=== PATIENT | male | born 1970 | race Caucasian/White ===

== ENCOUNTER 2021-03-27 04:15 | Inpatient (IN) | payer OTHER ==
[2021-03-23 16:33] VITALS: BMI 32.5
[2021-03-27] MEDS ORDERED: GENTAMICIN SO4 80 MG/2 ML VIAL ONE (07:19)
[2021-03-27] MEDS ORDERED: BUPIVACAINE HCL/PF 0.25% (2.5MG/ML) 10 ML VIAL ONE (07:19)
[2021-03-27] MEDS ORDERED: BUPIVACAINE LIPOSOME/PF (EXPAREL) 266 MG/20 ML VIAL ONE (07:19)
[2021-03-27] MEDS ORDERED: THROMBIN (BOVINE) 5,000 UNIT VIAL TP ONE ×2 (07:20→09:28)
[2021-03-27] MEDS ORDERED: ROCURONIUM BROMIDE 50 MG/5 ML SYRINGE ONE ×2 (08:07→09:41)
[2021-03-27] MEDS ORDERED: fentaNYL CITRATE 250 MCG/5 ML VIAL ONE ×2 (08:07→10:30)
[2021-03-27] MEDS ORDERED: MIDAZOLAM HCL 2 MG/2 ML SINGLE DOSE VIAL ONE (08:07)
[2021-03-27] MEDS ORDERED: PROPOFOL 20 ML ONE ×3 (08:07→12:46)
[2021-03-27] MEDS ORDERED: GLYCOPYRROLATE 0.2 MG/1 ML VIAL ONE ×2 (08:09→12:07)
[2021-03-27] MEDS ORDERED: SODIUM CHLORIDE 0.9% P/F 10 ML VIAL IJ ONE ×2 (08:10→11:32)
[2021-03-27] MEDS ORDERED: ceFAZolin SODIUM 1 GM VIAL ONE ×3 (08:10→15:24)
[2021-03-27] MEDS ORDERED: VANCOMYCIN 1,000 MG VIAL (RESTRICTED TO ID ONLY) ONE (08:10)
[2021-03-27] MEDS ORDERED: LIDOCAINE HCL/PF 2% SDV 5ML VIAL ONE ×2 (08:13→12:39)
[2021-03-27] MEDS ORDERED: MORPHINE 5 MG/10 ML AMP - FOR COMPOUNDING USE ONLY ONE (08:31)
[2021-03-27] MEDS ORDERED: VANCOMYCIN 1,000 MG VIAL (RESTRICTED TO ID ONLY) IVPB ONE (08:50)
[2021-03-27] MEDS ORDERED: DEXAMETHASONE SOD PHOSPHATE 4 MG/1 ML VIAL ONE (08:51)
[2021-03-27] MEDS ORDERED: ceFAZolin SODIUM 1 GM VIAL IVPB ONE (09:05)
[2021-03-27] MEDS ORDERED: TRANEXAMIC ACID 1000 MG/10 ML VIAL ONE ×2 (09:06→12:12)
[2021-03-27] MEDS ORDERED: GENTAMICIN SO4 80 MG/2 ML VIAL IVPB ONE (09:28)
[2021-03-27] MEDS ORDERED: ACETAMINOPHEN INJECTION 100 ML IVPB ONE (11:36)
[2021-03-27] MEDS ORDERED: ONDANSETRON 4 MG/2 ML VIAL ONE (12:04)
[2021-03-27] MEDS ORDERED: NEOSTIGMINE METHYLSULFATE 0.5 MG/1 ML - 10 ML MDV ONE (12:07)
[2021-03-27] MEDS ORDERED: BUPIVACAINE LIPOSOME/PF (EXPAREL) 266 MG/20 ML VIAL NR ONE (12:27)
[2021-03-27] MEDS ORDERED: BUPIVACAINE HCL/PF 0.25% (2.5MG/ML) 10 ML VIAL IJ ONE (12:27)
[2021-03-27] MEDS ORDERED: METOPROLOL TARTRATE 5 MG/5 ML VIAL ONE (12:40)
[2021-03-27] MEDS ORDERED: ONDANSETRON 4 MG/2 ML VIAL IVPUSH PRN ×2 (13:01→13:12)
[2021-03-27] MEDS ORDERED: PROMETHAZINE HCL 25 MG/1 ML VIAL IVPUSH PRN (13:01)
[2021-03-27] MEDS ORDERED: morphine SULFATE/PF 1 MG/2 ML (2cc Syringe - QUVA) EP ONE (13:03)
[2021-03-27] MEDS ORDERED: oxyCODONE HCL 20 MG SUSTAINED ACTING TABLET PO PRN (13:11)
[2021-03-27] MEDS ORDERED: diazePAM CARPU-JECT 10 MG/2 ML DISP.SYRIN IVPUSH PRN (13:12)
[2021-03-27] MEDS ORDERED: ACETAMINOPHEN 1000 MG/100 ML VIAL IVPB PRN (13:12)
[2021-03-27] MEDS ORDERED: oxyCODONE HCL 5 MG TABLET PO PRN (13:12)
[2021-03-27] MEDS ORDERED: LACTATED RINGERS SOLUTION 1,000 ML IV SCH ×2 (13:15)
[2021-03-27] MEDS: CEFAZOLIN 2 GM in DEXTROSE 5%-WATER - 100 ML IVPB SCH ×2 (15:45→22:33)
[2021-03-27] MEDS: oxyCODONE HCL 5 MG TABLET PO PRN (18:55)
[2021-03-27] MEDS: HYDROmorphone HCl 2 MG/ML VIAL SQ PRN (21:45)
[2021-03-27] MEDS: ZOLPIDEM TARTRATE 5 MG TABLET PO PRN (22:00)
[2021-03-28] MEDS: CEFAZOLIN 2 GM in DEXTROSE 5%-WATER - 100 ML IVPB SCH (02:26)
[2021-03-28] MEDS: HYDROmorphone HCl 2 MG/ML VIAL SQ PRN (06:03)
[2021-03-28 07:30] LABS: HEMATOCRIT 27.8 % (35.4-49); HEMOGLOBIN 9.7 GM/dL (11.7-16.9); MCH 30.9 pg (25.7-33.7); MCHC 34.8 g/dl (32.0-35.9); MEAN CELL VOLUME 88.9 fl (80-96); MEAN PLT VOLUME 10.2 fl (7.5-11.1); PLATELET COUNT 125 10^3/uL (134-434); RBC 3.12 M/mm3 (4.00-5.60); RDW 12.7 % (11.9-15.9); WHITE BLOOD COUNT 9.6 K/mm3 (4.0-10.0)
[2021-03-28 07:40] LABS: BLOOD UREA NITROGEN 14.9 mg/dL (7-18); CALCIUM 7.9 mg/dL (8.5-10.1)
[2021-03-28 07:43] LABS: CREATININE 0.8 mg/dL (0.55-1.3)
[2021-03-28] MEDS: oxyCODONE HCL 5 MG TABLET PO PRN (08:29)
[2021-03-28] MEDS ORDERED: DEXAMETHASONE SOD PHOSPHATE 4 MG/1 ML VIAL IVPUSH PRN (11:27)
[2021-03-28] MEDS ORDERED: ONDANSETRON 4 MG/2 ML VIAL IVPUSH PRN (11:27)
[2021-03-28] MEDS ORDERED: PROMETHAZINE HCL 25 MG/1 ML VIAL IVPB PRN (11:27)
[2021-03-28] MEDS: POLYETHYLENE GLYCOL (HEALTHYLAX) 3350 17 GM PACKET PO SCH (12:26)
[2021-03-28] MEDS ORDERED: PCA PUMP NR ONE (12:52)
[2021-03-28] MEDS: ZOLPIDEM TARTRATE 5 MG TABLET PO PRN (21:26)
[2021-03-29] MEDS: oxyCODONE HCL 5 MG TABLET PO PRN ×2 (00:40→15:12)
[2021-03-29 06:44] LABS: BASO % 0.1 % (0-2.0); HEMATOCRIT 29.8 % (35.4-49); HEMOGLOBIN 10.2 GM/dL (11.7-16.9); LYMPH % 14.1 % (8-40); MCH 30.6 pg (25.7-33.7); MCHC 34.3 g/dl (32.0-35.9); MEAN CELL VOLUME 89.2 fl (80-96); MEAN PLT VOLUME 10.4 fl (7.5-11.1); MONO % 10.5 % (3.8-10.2); NEUT % 75.3 % (42.8-82.8); PLATELET COUNT 121 10^3/uL (134-434); RBC 3.34 M/mm3 (4.00-5.60); RDW 12.6 % (11.9-15.9)
[2021-03-29 07:06] LABS: CALCIUM 8.1 mg/dL (8.5-10.1)
[2021-03-29 07:07] LABS: ALBUMIN 2.7 g/dl (3.4-5.0)
[2021-03-29 07:08] LABS: MAGNESIUM 2.2 mg/dL (1.8-2.4)
[2021-03-29 07:10] LABS: CREATININE 0.8 mg/dL (0.55-1.3); PHOSPHOROUS 2.4 mg/dL (2.5-4.9)
[2021-03-29 07:12] LABS: BILIRUBIN,TOTAL 0.7 mg/dL (0.2-1); TOT PROT 5.8 g/dl (6.4-8.2)
[2021-03-29] MEDS: HYDROmorphone *PCA* 10MG/50ML DISP.SYRIN PCA PRN (08:20)
[2021-03-29] MEDS: POLYETHYLENE GLYCOL (HEALTHYLAX) 3350 17 GM PACKET PO SCH (10:50)
[2021-03-29] MEDS ORDERED: BISACODYL 10 MG SUPP.RECT PR ONE (11:11)
[2021-03-29] MEDS ORDERED: [UNRECOGNIZED DRUG - OTHER] PO PRN (15:14)
[2021-03-29] MEDS ORDERED: OXYCODONE HCL PO PRN (15:14)
[2021-03-29] MEDS: LIDOCAINE 5% TOPICAL PATCH TP SCH (15:30)
[2021-03-29] MEDS: GABAPENTIN 300 MG CAPSULE PO SCH ×2 (15:38→21:48)
[2021-03-29] MEDS: SENNOSIDES 8.6MG TABLET (FP) PO SCH (21:48)
[2021-03-29] MEDS: ACETAMINOPHEN 500 MG TABLET (FP) PO SCH (21:48)
[2021-03-29] MEDS: ZOLPIDEM TARTRATE 5 MG TABLET PO PRN (21:49)
[2021-03-29] MEDS: LIDOCAINE PATCH REMOVAL MC SCH (21:53)
[2021-03-30] MEDS: GABAPENTIN 300 MG CAPSULE PO SCH ×3 (06:24→22:17)
[2021-03-30] MEDS: ACETAMINOPHEN 500 MG TABLET (FP) PO SCH ×3 (06:25→22:16)
[2021-03-30 07:36] LABS: HEMATOCRIT 30.8 % (35.4-49); HEMOGLOBIN 10.8 GM/dL (11.7-16.9); MCH 31.2 pg (25.7-33.7); MCHC 35.1 g/dl (32.0-35.9); MEAN CELL VOLUME 88.9 fl (80-96); MEAN PLT VOLUME 10.2 fl (7.5-11.1); PLATELET COUNT 138 10^3/uL (134-434); RBC 3.46 M/mm3 (4.00-5.60); RDW 12.5 % (11.9-15.9); WHITE BLOOD COUNT 7.5 K/mm3 (4.0-10.0)
[2021-03-30 08:09] LABS: ALBUMIN 2.9 g/dl (3.4-5.0); BLOOD UREA NITROGEN 12.6 mg/dL (7-18); CALCIUM 8.3 mg/dL (8.5-10.1)
[2021-03-30 08:11] LABS: BILIRUBIN,TOTAL 0.8 mg/dL (0.2-1); CREATININE 0.8 mg/dL (0.55-1.3); TOT PROT 6.3 g/dl (6.4-8.2)
[2021-03-30 08:44] LABS: PHOSPHOROUS 2.3 mg/dL (2.5-4.9)
[2021-03-30] MEDS: LIDOCAINE 5% TOPICAL PATCH TP SCH (11:01)
[2021-03-30] MEDS: POLYETHYLENE GLYCOL (HEALTHYLAX) 3350 17 GM PACKET PO SCH (11:01)
[2021-03-30] MEDS: oxyCODONE HCL 5 MG TABLET PO PRN ×2 (14:17→20:57)
[2021-03-30] MEDS: HYDROmorphone *PCA* 10MG/50ML DISP.SYRIN PCA PRN (14:20)
[2021-03-30] MEDS: ZOLPIDEM TARTRATE 5 MG TABLET PO PRN (21:05)
[2021-03-30] MEDS: SENNOSIDES 8.6MG TABLET (FP) PO SCH (22:17)
[2021-03-30] MEDS: LIDOCAINE PATCH REMOVAL MC SCH (23:00)
[2021-03-31] MEDS: GABAPENTIN 300 MG CAPSULE PO SCH ×3 (06:40→21:19)
[2021-03-31] MEDS: ACETAMINOPHEN 500 MG TABLET (FP) PO SCH ×3 (06:40→21:19)
[2021-03-31 07:23] LABS: HEMOGLOBIN 10.7 GM/dL (11.7-16.9); MCHC 35.7 g/dl (32.0-35.9); MEAN CELL VOLUME 86.8 fl (80-96); MEAN PLT VOLUME 9.7 fl (7.5-11.1); PLATELET COUNT 173 10^3/uL (134-434); RBC 3.45 M/mm3 (4.00-5.60); RDW 12.9 % (11.9-15.9); WHITE BLOOD COUNT 6.3 K/mm3 (4.0-10.0)
[2021-03-31 07:47] LABS: CALCIUM 8.5 mg/dL (8.5-10.1)
[2021-03-31 07:48] LABS: BLOOD UREA NITROGEN 16.1 mg/dL (7-18)
[2021-03-31] MEDS: POLYETHYLENE GLYCOL (HEALTHYLAX) 3350 17 GM PACKET PO SCH (09:51)
[2021-03-31] MEDS: LIDOCAINE 5% TOPICAL PATCH TP SCH (09:52)
[2021-03-31] MEDS ORDERED: oxyCODONE HCL 5 MG TABLET PO PRN (10:34)
[2021-03-31] MEDS: oxyCODONE HCL 5 MG TABLET PO PRN ×2 (18:04→21:19)
[2021-03-31] MEDS: LIDOCAINE PATCH REMOVAL MC SCH (21:13)
[2021-03-31] MEDS: SENNOSIDES 8.6MG TABLET (FP) PO SCH (21:19)
[2021-04-01] MEDS: oxyCODONE HCL 5 MG TABLET PO PRN ×5 (03:34→21:08)
[2021-04-01] MEDS: GABAPENTIN 300 MG CAPSULE PO SCH ×3 (06:32→21:07)
[2021-04-01] MEDS: ACETAMINOPHEN 500 MG TABLET (FP) PO SCH ×4 (06:32→21:08)
[2021-04-01 08:12] LABS: HEMATOCRIT 32.4 % (35.4-49); HEMOGLOBIN 11.4 GM/dL (11.7-16.9); MCH 31.2 pg (25.7-33.7); MEAN PLT VOLUME 9.8 fl (7.5-11.1); PLATELET COUNT 230 10^3/uL (134-434); RBC 3.64 M/mm3 (4.00-5.60); RDW 12.7 % (11.9-15.9); WHITE BLOOD COUNT 6.3 K/mm3 (4.0-10.0)
[2021-04-01 08:37] LABS: CALCIUM 8.5 mg/dL (8.5-10.1)
[2021-04-01 08:38] LABS: BLOOD UREA NITROGEN 12.5 mg/dL (7-18)
[2021-04-01 08:41] LABS: CREATININE 0.9 mg/dL (0.55-1.3)
[2021-04-01 08:42] LABS: BILIRUBIN,TOTAL 0.8 mg/dL (0.2-1)
[2021-04-01 08:43] LABS: TOT PROT 6.7 g/dl (6.4-8.2)
[2021-04-01] MEDS: POLYETHYLENE GLYCOL (HEALTHYLAX) 3350 17 GM PACKET PO SCH (09:27)
[2021-04-01] MEDS: LIDOCAINE 5% TOPICAL PATCH TP SCH (09:28)
[2021-04-01] MEDS: LIDOCAINE PATCH REMOVAL MC SCH (21:09)
[2021-04-01] MEDS: SENNOSIDES 8.6MG TABLET (FP) PO SCH (21:09)
[2021-04-01] MEDS ORDERED: ZOLPIDEM TARTRATE 5 MG TABLET PO ONE (21:17)
[2021-04-02] MEDS: oxyCODONE HCL 5 MG TABLET PO PRN ×8 (02:49→23:23)
[2021-04-02] MEDS: ACETAMINOPHEN 500 MG TABLET (FP) PO SCH ×2 (06:19→21:31)
[2021-04-02] MEDS: GABAPENTIN 300 MG CAPSULE PO SCH ×3 (06:19→21:31)
[2021-04-02] MEDS: LIDOCAINE 5% TOPICAL PATCH TP SCH (09:34)
[2021-04-02] MEDS: POLYETHYLENE GLYCOL (HEALTHYLAX) 3350 17 GM PACKET PO SCH (09:34)
[2021-04-02] MEDS ORDERED: oxyCODONE HCL 5 MG TABLET ONE (10:34)
[2021-04-02] MEDS ORDERED: MELATONIN 5 MG TABLETS PO ONE (19:53)
[2021-04-02] MEDS: LIDOCAINE PATCH REMOVAL MC SCH (21:31)
[2021-04-02] MEDS: SENNOSIDES 8.6MG TABLET (FP) PO SCH (21:31)
[2021-04-03] MEDS: oxyCODONE HCL 5 MG TABLET PO PRN ×3 (04:14→13:48)
[2021-04-03] MEDS: ACETAMINOPHEN 500 MG TABLET (FP) PO SCH ×2 (05:18→13:43)
[2021-04-03] MEDS: GABAPENTIN 300 MG CAPSULE PO SCH ×2 (06:03→13:49)
[2021-04-03 08:19] VITALS: BP 114/77; PULSE 103; TEMP 98.1
[2021-04-03] MEDS: POLYETHYLENE GLYCOL (HEALTHYLAX) 3350 17 GM PACKET PO SCH (09:04)
[2021-04-03] MEDS: LIDOCAINE 5% TOPICAL PATCH TP SCH (09:04)
== END 2021-04-03 14:23 | DRG 304 ==
LOC: J2C 04:15 → J4W 17:33
PROVIDERS: ADMIT Orthopaedic Surgery Orthopaedic Surgery of the Spine
PROC: 0SG10AJ Fusion of 2 or more Lumbar Vertebral Joints with Interbody Fusion Device, Posterior Approach, Anterior Column, Open Approach (ICD-10-PCS; 2021-03-27)
PROC: 0SG1071 Fusion of 2 or more Lumbar Vertebral Joints with Autologous Tissue Substitute, Posterior Approach, Posterior Column, Open Approach (ICD-10-PCS; 2021-03-27)
PROC: 0SB20ZZ Excision of Lumbar Vertebral Disc, Open Approach (ICD-10-PCS; 2021-03-27)
PROC: 01NB0ZZ Release Lumbar Nerve, Open Approach (ICD-10-PCS; 2021-03-27)
PROC: 0SG30AJ Fusion of Lumbosacral Joint with Interbody Fusion Device, Posterior Approach, Anterior Column, Open Approach (ICD-10-PCS; 2021-03-27)
PROC: 0SG3071 Fusion of Lumbosacral Joint with Autologous Tissue Substitute, Posterior Approach, Posterior Column, Open Approach (ICD-10-PCS; 2021-03-27)
PROC: 01NR0ZZ Release Sacral Nerve, Open Approach (ICD-10-PCS; 2021-03-27)
PROC: 0SB40ZZ Excision of Lumbosacral Disc, Open Approach (ICD-10-PCS; 2021-03-27)
PROC: 07DR0ZZ Extraction of Iliac Bone Marrow, Open Approach (ICD-10-PCS; 2021-03-27)
PROC: 0QP004Z Removal of Internal Fixation Device from Lumbar Vertebra, Open Approach (ICD-10-PCS; principal; 2021-03-27 08:00)
DX: M51.16 Intervertebral disc disorders with radiculopathy, lumbar region (principal); M48.062 Spinal stenosis, lumbar region with neurogenic claudication; M51.17 Intervertebral disc disorders with radiculopathy, lumbosacral region; M48.07 Spinal stenosis, lumbosacral region; D62 Acute posthemorrhagic anemia; D69.6 Thrombocytopenia, unspecified; G47.00 Insomnia, unspecified; E78.5 Hyperlipidemia, unspecified
CPT/HCPCS: 36415; 72131-TC; 76000-TC-FY; 80048; 80053; 83735; 84100; 85025; 85027; 86850; 86900; 86901; 86922; 94010; 94760; 97116-GP; 97161-GP; C9803; J0131; U0003; U0005